=== PATIENT | male | born 1980 | race Caucasian/White ===

== ENCOUNTER → 2017-11-06 | Outpatient (CLI) | payer OTHER ==
[2016-04-18 09:28] VITALS: BMI 25.1
[~2017-11-06] MED LIST: ARIP10TA4 PO; ARIP20TA11 PO; ATO25 PO; CYCL10TA29 PO; ESCI5TAB10 PO; HYDR2TAB74 PO; LAMO200T45 PO; LAMO25TA PO; NICO-219 BC
[2017-11-06 13:05] LABS: INR 0.94; LDL CHOLESTEROL 112 mg/dl
[2017-11-06 13:18] LABS: PLATELET COUNT, AUTOMATED 280 K/uL (150-450)
== END ==
LOC: LAB 12:28
PROVIDERS: ATTEND Nurse Practitioner Family
DX: Z00.00 Encounter for general adult medical examination without abnormal findings (principal); R58 Hemorrhage, not elsewhere classified; R04.2 Hemoptysis; E78.5 Hyperlipidemia, unspecified
CPT/HCPCS: 36415; 82040; 82247; 82310; 82374; 82435; 82465; 82565; 82947; 83718; 84075; 84132; 84155; 84295; 84443; 84450; 84460; 84478; 84520; 85025; 85610

== ENCOUNTER 2018-05-19 22:07 | Emergency (ER) | payer OTHER ==
[2016-04-18 09:28] VITALS: Wt 95.3 kg
--- NOTE | 2018-05-19 22:09 | ER Report ---
History and Physical Time Seen By MD: 22:08 HPI/ROS CHIEF COMPLAINT: Shaking, dizzy, sweating earlier, "mind fog" HISTORY OF PRESENT ILLNESS: Patient is a 37-year-old male who has a past medical history for alcohol abuse but has had approximately 5+ years of sobriety , who presents to the emergency department complaining of feeling jittery, shaky having approximately 30 minute episode of profuse sweating and currently stating he is having "fuzzy thinking". He shouldn't denies any alcohol or other drug use. He does admit to drinking multiple cups of a "mint tea". This tea is not something he purchased in a grocery store but rather was gathered from leave this in his friend's backyard. He states he's had similar tea in the past without having any episodes. He denies any head injuries he denies any chest pain but does report some palpitations when this started. He reports some nausea but no vomiting and no abdominal pain. REVIEW OF SYSTEMS: Constitutional: No fever, no chills. Eyes: No discharge. ENT: No sore throat. Cardiovascular: Palpitations Respiratory: No cough, no shortness of breath. Gastrointestinal: Nausea, no abdominal pain Genitourinary: No hematuria. Musculoskeletal: No back pain. Skin: No rashes. Neurological: "Fuzzy thinking" Allergies: Coded Allergies: Penicillins (Unverified Allergy, Unknown, 05/19/18) shellfish derived (Unverified Allergy, Unknown, 05/19/18) Home Meds Reported Medications Atomoxetine (STRATTERA) 25 Mg Cap, 25 MG PO QDAY, CAP 04/18/16 Aripiprazole (ABILIFY) 20 Mg Tablet, 20 MG PO QDAY, TAB 04/17/16 Lamotrigine (LAMOTRIGINE) 200 Mg Tablet, 200 MG PO DAILY 06/03/15 Discontinued Reported Medications Cyclobenzaprine Hcl (CYCLOBENZAPRINE HCL) 10 Mg Tablet, 10 MG PO PRN, #9 TAB 03/29/17 Past Medical/Surgical History History of alcohol abuse in the past as well as suicidal ideation in the past. Patient has been sober from alcohol 5+ years. Hx Smoking: No Smoking Status: Never Smoker Exposure to Second Hand Smoke?: No Hx Substance Use Disorder: Yes (tried marijuana once in high school) Hx Alcohol Use: Yes Constitutional Vital Sign - Last 24 Hours 05/19/18 22:13 Temp 97.7 Pulse 92 Resp 18 B/P (MAP) 140/90 Pulse Ox 96 O2 Delivery Room Air Physical Exam General/Constitutional: Patient is awake, alert, nontoxic and in no acute respiratory distress. Head: Normocephalic and atraumatic. Eyes: Conjunctival clear, Pupils are equal and reactive to light. Extraocular muscles are intact and symmetrical. Sclera are clear and anicteric. Ears:External canals are clear. Tympanic membranes are clear with normal landmarks and light reflex. Nares: No rhinorrhea or bleeding. Turbinates are pink and moist. Oropharyngeal: Mucous membranes are moist. Neck: Supple, no adenopathy. Cardiovascular: Heart is regular rate and rhythm without audible murmurs, rubs or gallops. Pulmonary: Lungs are clear to auscultation bilaterally. There are no wheezes, rales, or rhonchi. Chest rise is symmetrical Abdomen: Soft, nontender, no guarding or peritoneal signs. Extremities: No gross deformities, No peripheral cyanosis. Able to move all 4 extremities. Neuro: Alert and oriented X3, Cranial nerves 2 thru 12 are intact and symmetrical. Skin: No rashes, skin is warm dry and well perfused. Medical Decision Making Data Points Result Diagram: 05/19/18224405/19/182244 Laboratory Hematology Test 05/19/18 22:45 Red Blood Count 5.70 M/uL (4.00-5.60) Mean Corpuscular Volume 84.7 fL (80.0-96.0) Mean Corpuscular Hemoglobin 30.9 pg (26.0-33.0) Mean Corpuscular Hemoglobin Concent 36.5 g/dL (32.0-36.0) Red Cell Distribution Width 12.7 % (11.5-14.5) Mean Platelet Volume 8.4 fL (7.2-11.1) Neutrophils (%) (Auto) 77.7 % (39.4-72.5) Lymphocytes (%) (Auto) 12.7 % (17.6-49.6) Monocytes (%) (Auto) 6.4 % (4.1-12.4) Eosinophils (%) (Auto) 2.3 % (0.4-6.7) Basophils (%) (Auto) 0.9 % (0.3-1.4) Nucleated RBC Relative Count (auto) 0.1 /100WBC Neutrophils # (Auto) 8.4 K/uL (2.0-7.4) Lymphocytes # (Auto) 1.4 K/uL (1.3-3.6) Monocytes # (Auto) 0.7 K/uL (0.3-1.0) Eosinophils # (Auto) 0.3 K/uL (0.0-0.5) Basophils # (Auto) 0.1 K/uL (0.0-0.1) Nucleated RBC Absolute Count (auto) 0.01 K/uL Sodium Level 138 mmol/L (137-145) Potassium Level 3.6 mmol/L (3.5-5.0) Chloride Level 102 mmol/L (98-107) Carbon Dioxide Level 23 mmol/L (22-30) Blood Urea Nitrogen 10 mg/dl (9-21) Creatinine 0.90 mg/dl (0.66-1.25) Glomerular Filtration Rate Calc > 60.0 Random Glucose 115 mg/dl (75-110) Calcium Level 9.0 mg/dl (8.4-10.2) Chemistry Test 05/19/18 22:45 White Blood Count 10.9 k/uL (4.5-11.0) Red Blood Count 5.70 M/uL (4.00-5.60) Hemoglobin 17.6 g/dL (14.0-18.0) Hematocrit 48.3 % (42.0-52.0) Mean Corpuscular Volume 84.7 fL (80.0-96.0) Mean Corpuscular Hemoglobin 30.9 pg (26.0-33.0) Mean Corpuscular Hemoglobin Concent 36.5 g/dL (32.0-36.0) Red Cell Distribution Width 12.7 % (11.5-14.5) Platelet Count 304 K/uL (150-450) Mean Platelet Volume 8.4 fL (7.2-11.1) Neutrophils (%) (Auto) 77.7 % (39.4-72.5) Lymphocytes (%) (Auto) 12.7 % (17.6-49.6) Monocytes (%) (Auto) 6.4 % (4.1-12.4) Eosinophils (%) (Auto) 2.3 % (0.4-6.7) Basophils (%) (Auto) 0.9 % (0.3-1.4) Nucleated RBC Relative Count (auto) 0.1 /100WBC Neutrophils # (Auto) 8.4 K/uL (2.0-7.4) Lymphocytes # (Auto) 1.4 K/uL (1.3-3.6) Monocytes # (Auto) 0.7 K/uL (0.3-1.0) Eosinophils # (Auto) 0.3 K/uL (0.0-0.5) Basophils # (Auto) 0.1 K/uL (0.0-0.1) Nucleated RBC Absolute Count (auto) 0.01 K/uL Glomerular Filtration Rate Calc > 60.0 Calcium Level 9.0 mg/dl (8.4-10.2) ED Course/Re-evaluation Clinical Indication for ER IV: Hydration, IV Access ED Course 05/19/2018 10:35:36 pm plan at this time will be to check CBC basic metabolic panel will also give IV fluids and Zofran check EKG. 05/19/2018 11:34:20 pm bloodwork appears normal. The patient states he feels somewhat improved. Plan will be discharge home Decision to Disposition Date: May 19, 2018 Decision to Disposition Time: 23:34 Depart Departure Latest Vital Signs Vital Signs Date Time Temp Pulse Resp B/P (MAP) Pulse Ox O2 Delivery O2 Flow Rate FiO2 05/19/18 22:13 97.7 92 18 140/90 96 Room Air Impression: Primary Impression: Nausea Condition: Improved Disposition: HOME OR SELF-CARE Referrals: BERTHA BOWER (PCP) 2 Days if symptoms persist Patient Instructions: Acute Nausea and Vomiting (ED) Additional Instructions: Zofran 4 mg take if you have persistent nausea. If her symptoms persist greater than 48 hours or worsen at any time you should return to the emergency department or your primary care provider for reevaluation. BRIGID SANTO MD May 19, 2018 22:09
[2018-05-19] MEDS ORDERED: NS(*) 0.9% 1000 ML BAG 1,000 ML IV ONE (22:35)
[2018-05-19] MEDS ORDERED: ONDANSETRON 4 MG/2 ML VIAL IVP ONE (22:35)
[2018-05-19 23:03] LABS: PLATELET COUNT, AUTOMATED 304 K/uL (150-450)
[2018-05-19 23:30] VITALS: BP 117/76
[2018-05-19] MEDS ORDERED: FAMOTIDINE 20 MG TAB PO ONE (23:35)
[2018-05-19] MEDS ORDERED: ONDANSETRON 4 MG ODT TH SL ONE (23:35)
--- NOTE | 2018-05-20 00:46 | EKG ---
FACILITY: [facility] PATIENT NAME: BERNA GARCIA : [id number] MR: [id number] V: [id number] EXAM DATE: ORDERING PHYSICIAN: BRIGID SANTO TECHNOLOGIST: VANDA Test Reason : NEURO Blood Pressure : / mmHG Vent. Rate : 088 BPM Atrial Rate : 088 BPM P-R Int : 164 ms QRS Dur : 092 ms QT Int : 368 ms P-R-T Axes : 064 012 061 degrees QTc Int : 445 ms Sinus arrhythmia Possible left atrial enlargement Poor R wave progression anteriorly Nonspecific ST-T findings Abnormal ECG Confirmed by YANETH URIBE ([id number]) on 05/20/2018 6:26:34 AM Referred By: Confirmed By:YANETH URIBE
== END 2018-05-19 23:46 | disposition home or self-care (01) ==
LOC: ER 22:42
DX: R11.10 Vomiting, unspecified (principal)
CPT/HCPCS: 85025; 93005; 96361; 96374; 99284; J2405; J7030; S0119; 82310; 82374; 82435; 82565; 82947; 84132; 84295; 84520

== ENCOUNTER 2019-06-06 16:41 | Emergency (ER) | payer OTHER ==
[2016-04-18 09:28] VITALS: Wt 99.8 kg
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
[2019-06-06] MEDS ORDERED: ORPHENADRINE 60MG/2ML INJ IM ONE (18:45)
[2019-06-06] MEDS ORDERED: CYCL10TA29 PO (18:47)
== END 2019-06-06 19:26 | disposition home or self-care (01) ==
LOC: ER 17:08
DX: S40.022A Contusion of left upper arm, initial encounter (principal); S16.1XXA Strain of muscle, fascia and tendon at neck level, initial encounter; I10 Essential (primary) hypertension; K21.9 Gastro-esophageal reflux disease without esophagitis; F31.9 Bipolar disorder, unspecified; V20.5XXA Motorcycle passenger injured in collision with pedestrian or animal in traffic accident, initial encounter; Z79.899 Other long term (current) drug therapy
CPT/HCPCS: 70450; 72120; 72125; 73060; 73552; 96372; 99284; J2360

== ENCOUNTER → 2019-06-06 | Outpatient (CLI) | payer OTHER ==
[2016-04-18 09:28] VITALS: BMI 25.1
== END ==
LOC: AMB 16:14
PROVIDERS: ATTEND Nurse Practitioner
DX: R42 Dizziness and giddiness (principal); M54.5 Low back pain; M54.2 Cervicalgia; V03.10XA Pedestrian on foot injured in collision with car, pick-up truck or van in traffic accident, initial encounter
CPT/HCPCS: A0425; A0429